=== PATIENT | female | born 1950 | race Two or more races ===

== ENCOUNTER 2021-04-07 14:40 | Emergency (ER) | payer OTHER ==
[~2021-04-07] VITALS: Ht 152.4 cm; Wt 58.1 kg
[2021-04-07] MEDS ORDERED: NEURONTIN300 MG PO (14:57)
[2021-04-07] MEDS ORDERED: LEVO-T25 MCG PO (14:57)
[2021-04-07] MEDS ORDERED: IRBESARTAN-HCT1 EACH PO (14:57)
[2021-04-07] MEDS ORDERED: LIPITOR20 MG PO (14:58)
[2021-04-07] MEDS ORDERED: TENORMIN50 M1 PO (14:58)
[2021-04-07] MEDS ORDERED: PEPCID AC10 MG PO (14:58)
[2021-04-07] MEDS ORDERED: FOLIC ACID0.8 M1 (14:59)
[2021-04-07] MEDS ORDERED: AMLODIPINE-OLM1 EAC3 PO (14:59)
[2021-04-07] MEDS ORDERED: SINGULAIR10 MG PO (15:00)
== END 2021-04-07 22:34 | disposition home or self-care (01) ==
LOC: ER 14:40 → EDBD 14:40 → ER 17:42
DX: J45.902 Unspecified asthma with status asthmaticus (principal); I10 Essential (primary) hypertension; E11.65 Type 2 diabetes mellitus with hyperglycemia; Z79.4 Long term (current) use of insulin; Z88.5 Allergy status to narcotic agent; Z88.8 Allergy status to other drugs, medicaments and biological substances